=== PATIENT | female | born 1985 | race Asian ===

== ENCOUNTER 2022-08-27 05:55 | Inpatient (IN) | payer BC, SELFPAY ==
[2022-08-27] VITALS (32 sets, daily range): BP systolic 111–140; BP diastolic 62–89; PULSE 75–93; RESP 16; TEMP 36.1–37.4; O2SAT 98; BMI 28.0
--- NOTE | 2022-08-27 05:55 | LDADM ---
This patient, Althea Scott, was admitted to Labor/Delivery/Recovery 103 on 08/27/22 at 05:55. Plans for labor, pain management and were discussed with patient. Patient/family oriented to hospital policies and general routines including ID bracelet, bed and alarms, visiting hours, pain management, procedures, bathroom and other care routines, personal items, smoking policy, room service/diet and guest tray routines, security routines, and visiting hours. Patient/Family are encouraged to report perceived risks to care and to ask questions if they do not understand what they are told or what they should do. See OBIX for further documentation.
[2022-08-27 06:55] LABS: Basophils Percent Auto 0.4 % (0.2-1.2); Eosinophils Absolute Auto 0.1 K/mm3 (0-0.3); Eosinophils Percent Auto 1.1 % (0-4.4); Hematocrit 35.9 % (37.0-47.0); Hemoglobin 12.1 g/dL (12.0-15.0); Immature Granulocyte Absolute 0.15 K/mm3 (0.00-0.031); Immature Granulocyte Percent A 1.9 % (0-0.5); Lymphocytes Absolute Auto 1.78 K/mm3 (0.9-3.2); Mean Corpuscular HGB Conc 33.7 g/dl (32-36); Mean Corpuscular Hemoglobin 29.3 pg (26-34); Mean Corpuscular Volume 86.9 fl (80-100); Monocytes Absolute Auto 0.7 K/mm3 (0.1-0.6); Monocytes Percent Auto 8.4 % (2.6-8.5); Neutrophils Absolute Auto 5.4 K/mm3 (1.3-6.7); Neutrophils Percent Auto 66.2 % (45.5-73.1); Platelet Count Result 165 k/mm3 (150-375); Red Blood Count 4.13 M/mm3 (4.2-5.4); Red Cell Distribution Width 14.3 % (11.5-14.5); White Blood Count 8.1 K/mm3 (4.5-10.0)
[2022-08-27] MEDS: OXYTOCIN 30 UNITS/NS 500 ML 30 UNITS/500 ML BAG IV CONT (07:11)
[2022-08-27] MEDS: LACTATED RINGERS 1,000 ML 125 ML IV CONT (07:11)
--- NOTE | 2022-08-27 07:54 | PM.IMHP ---
H&P: HPI History of Present Illness Date/Time: 08/27/22 07:54 Chief Complaint: induction of labor Narrative: Shirin is a 37yo at 39.1 for elective IOL. She is AMA and has history of LGA babies x2. This baby was measuring LGA at 95%, but last US was 83%. GBS neg. Irregular contractions prior to admission. Review of Systems Review of Systems: All systems reviewed & are unremarkable except as noted in HPI and below PMFSH Family History Family History (Updated 08/01/22 @ 13:13 by Zo Kaur RN) Mother Hypertension Asthma Social History Social History Smoking status: Never smoker Substance use: never Spiritual care concerns: No Meds Home Medications and Allergies Home Medications Medication Instructions Recorded Confirmed Type prenat.vits,anthony,dth-zbmu-yhidc 1 tablet PO DAILY 08/01/22 08/01/22 History Allergies Allergy/AdvReac Type Severity Reaction Status Date / Time No Known Allergies Allergy Verified 08/01/22 13:10 Vital Signs Vital Signs - 24 hr 08/27/22 06:48 08/27/22 07:00 08/27/22 07:15 Temperature Pulse Rate 81 79 88 Blood Pressure 117/73 115/70 130/76 08/27/22 06:54 08/27/22 07:30 08/27/22 07:45 Temperature 97.1 F L Pulse Rate 82 89 Blood Pressure 122/74 111/69 Exam Const: General: no acute distress Resp: Effort & Inspection: normal respiratory effort Auscultation: clear to auscultation bilaterally Cardio: Rate: regular rate Rhythm: regular rhythm GI: GI Palp: Yes Soft to palpation Extrem: General: normal to inspection H&P: Results Labs Labs: Short CBC 08/27/22 Range/Units 06:44 WBC 8.1 (4.5-10.0) K/mm3 Hgb 12.1 (12.0-15.0) g/dL Hct 35.9 L (37.0-47.0) % Plt Count 165 (150-375) k/mm3 Assessment and Plan Assessment and plan (1) Encounter for induction of labor: Code(s): Z34.90 - Encounter for supervision of normal , unspecified, unspecified trimester Status: Acute Plan IOL pitocin AROM clear /2 GBS neg anticipate FHT category 1
--- NOTE | 2022-08-27 08:30 | WPDANESEPP ---
Anes - Eval Pre Procedure Procedure: Labor Pain Management Date/Time: 08/27/22 08:30 Surgeon: Aubrey Preop Diagnosis: Pain during labor Pre Op Diagnosis: IOL Patient Data Age: 37 Gender: F Height: 1.63 m Weight: 74 kg Last Vital Signs Temp 97.1 F L 08/27/22 06:54 Pulse 76 08/27/22 08:15 BP 117/72 08/27/22 08:15 Allergies Allergy/AdvReac Type Severity Reaction Status Date / Time No Known Allergies Allergy Verified 08/01/22 13:10 Home Medications Medication Instructions Recorded Confirmed Type prenat.vits,anthony,hua-hciv-cletv 1 tablet PO DAILY 08/01/22 08/01/22 History Laboratory Tests 08/27/22 08/27/22 08/27/22 06:44 06:44 06:44 WBC 8.1 K/mm3 K/mm3 (4.5-10.0) RBC 4.13 M/mm3 L M/mm3 (4.2-5.4) Hgb 12.1 g/dL g/dL (12.0-15.0) Hct 35.9 % L % (37.0-47.0) MCV 86.9 fl fl (80-100) MCH 29.3 pg pg (26-34) MCHC 33.7 g/dl g/dl (32-36) RDW 14.3 % % (11.5-14.5) Plt Count 165 k/mm3 k/mm3 (150-375) MPV 11.0 fl H fl (7.4-10.4) Immature Gran % (Auto) 1.9 % H % (0-0.5) Neut % (Auto) 66.2 % % (45.5-73.1) Lymph % (Auto) 22.0 % % (18.3-44.2) [place] % (Auto) 8.4 % % (2.6-8.5) Eos % (Auto) 1.1 % % (0-4.4) Baso % (Auto) 0.4 % % (0.2-1.2) Lymph # (Auto) 1.78 K/mm3 K/mm3 (0.9-3.2) [place] # (Auto) 0.7 K/mm3 H K/mm3 (0.1-0.6) Eos # (Auto) 0.1 K/mm3 K/mm3 (0-0.3) Baso # (Auto) 0.0 K/mm3 K/mm3 (0.0-0.1) Abs Immat Gran (auto) 0.15 K/mm3 H K/mm3 (0.00-0.031) Absolute Neuts (auto) 5.4 K/mm3 K/mm3 (1.3-6.7) Absolute Nucleated RBC 0.0 K/mm3 K/mm3 (0.0-0.012) Nucleated RBC % 0.0 % % (0.0-0.2) RPR Pending Blood Type O Positive Antibody Screen Negative Patient hx anesthesia problems: none Family hx anesthesia problems: none Results Review: All pre-operative results and documents have been reviewed as part of the pre-operative evaluation. [facility] Family History Family History (Updated 08/01/22 @ 13:13 by Zo Kaur RN) Mother Hypertension Asthma Social History Social History Smoking status: Never smoker Substance use: never Spiritual care concerns: No Exam Day of Procedure 08/27/22 08:30
[2022-08-27 10:01] LABS: Rapid Plasma Reagin Non-Reactive (NonReactive)
--- NOTE | 2022-08-27 12:28 | PM.OBPRVD ---
OB - Delivery Note Procedure Delivery date: 08/27/22 Procedure: Induction method: AROM and Per Pitocin Protocol Delivery monitor: External FHT and External Uterine Route of delivery: Laceration Description: Perineal - 1st Degree Delivery repair: vicryl Specimen: No Quantitative Blood Loss (ml): 300 Anesthesia type: None Disposition: Floor Narrative: With adequate expulsive efforts by the mother, the baby's head was delivered OA. The baby's anterior shoulder was delivered under the pubic symphysis without difficulty. The posterior shoulder and the rest of the baby delivered without difficulty. The infant was placed on the mothers chest and suctioned and stimulated. The cord was clamped and cut after 30 seconds. Mother and baby both stable. Baby Date of : 08/27/22 Time of : 12:10 Weeks of gestation at delivery: 39 Infant gender: Female Weight (pounds): 9 Weight (ounces): 13 presentation: vertex Placenta delivery description: Spontaneous Cord Vessel Description: 3 Vessels and Delayed Cord Clamping score one minute: 8 score five minutes: 9
[2022-08-27] MEDS: IBUPROFEN 600 MG TABLET PO (13:59)
[2022-08-27] MEDS: LANOLIN (LANSINOH) 7.5 GM CREAM 1 APPLIC TOPICAL (19:46)
[2022-08-27] MEDS: ACETAMINOPHEN 325 MG TABLET 650 MG PO (19:46)
[2022-08-27] MEDS: DOCUSATE SODIUM 100 MG CAPSULE PO (19:51)
[2022-08-28 01:30] VITALS: BP 111/64; PULSE 68; RESP 14; TEMP 36.7; O2SAT 98
[2022-08-28] MEDS: IBUPROFEN 600 MG TABLET PO (03:27)
[2022-08-28 04:00] VITALS: BP 107/62; PULSE 72; RESP 16; TEMP 36.8; O2SAT 98
[2022-08-28 04:52] LABS: Hematocrit 34.1 % (37.0-47.0); Hemoglobin 11.5 g/dL (12.0-15.0)
--- NOTE | 2022-08-28 07:09 | PM.OBPNVD ---
OB - PN: Subj Subjective Date/time seen: 08/28/22 07:09 Patient comments: no complaints and pain well controlled baby status: doing well and nursing well [place] feeding status: exclusively breast feeding Narrative: would like DC home. OB - PN: Obj Data Labs 08/28/22 03:37 Labs: Laboratory Results - last 24 hr 08/27/22 08/27/22 08/28/22 06:44 06:44 03:37 Hgb 11.5 L Hct 34.1 L RPR Non-reactive Blood Type O Positive Antibody Screen Negative OB - PN A/P Plan day: 1 Plan: routine care and discharge home Time Spent With Patient Time: Total time spent is greater than 50% in coordination of care (as documented) at patient's floor/unit and/or counseling patient: Time with patient: less than 15 minutes Exam Narrative: NAD abdomen soft, nontender, fundus firm below the umbilicus Extremities nontender, 1+ edema
--- NOTE | 2022-08-28 07:11 | PM.OBDSVD ---
DS: Admitting Diagnosis Discharge Date 08/28/22 Admitting Diagnosis IUP at 39w DS: Discharge Diagnosis Discharge Diagnosis (1) , delivered: Code(s): O80 - Encounter for full-term uncomplicated delivery Status: Acute OB - DS: Summary Hospital Course Hospital Course: Shirin was admitted for elective induction at 39w and proceeded to have an uncomplicated vaginal delivery and course. She was discharged home on PPD 1. OB Procedures : Ultrasound OB Procedures Intrapartum: Spontaneous Vag Delivery OB Procedures: : None Peripartum Data Infant Delivery Method: Natural Vaginal complications: none Status at Discharge Functional status at discharge: independent ambulation Time Spent with Patient Time attestation: Total time spent providing and/or coordinating discharge services: Exam Narrative: NAD abdomen soft, appropriately tender Ext non tender, 1+ edema DS: Data Data Completed and Pending Labs on day of discharge: Labs from last 24 hours 08/28/22 08/27/22 08/27/22 03:37 06:44 06:44 Hgb 11.5 L Hct 34.1 L RPR Non-reactive Blood Type O Positive Antibody Screen Negative Discharge Plan Discharge Attending physician on discharge: Mary Burgos Discharging Clinician: Mary Burgos Anticipated Discharge Date/Time: 08/28/22 12:00 Patient Disposition: Home, Self-Care Activity: pelvic rest Diet: regular Patient Instructions: Antibiotic Form Stand Alone Forms: General Discharge Information Follow-up/Referrals: Mary Burgos MD [Physician] - 4 Weeks Discharge Medications: Continued #2 Tablet 1 tablet PO DAILY Date of admission: 08/27/22 05:55 Primary Care Provider: PHYSICIAN,HOSPITAL ADMISSIONS CLERK Admitting Provider: Mary Burgos Attending physician on admission: Mary Burgos Condition: Stable
[2022-08-28 07:50] VITALS: BP 102/60; PULSE 74; RESP 18; TEMP 37.3; O2SAT 99
[2022-08-28] MEDS: ACETAMINOPHEN 325 MG TABLET 650 MG PO (09:39)
[2022-08-28] MEDS: MULTIVIT/MIN/PREN/FOL AC/IRON TABLET 1 TAB PO (09:40)
[2022-08-28] MEDS: DOCUSATE SODIUM 100 MG CAPSULE PO (09:41)
[2022-08-28 12:09] VITALS: BP 113/57; PULSE 67; RESP 16; TEMP 37.2; O2SAT 98
--- NOTE | 2022-08-28 14:08 | PC.NURSE ---
[id number] Introductions were made Mother was open to conversation with her experience, plan to feed her so far and her ability to independently latch optimally without discomfort. Reminded parents to use good handwashing technique to prevent infection. Mother is feeding appropriately for growth of infant and understands stimulating infant to eat if needed. Mother was receptive to practicing the football position on the left breast encouraging to latch with big, open, wide gape. has had appropriate feedings in the last 24 hours meets the outcomes for weight, output and jaundice at this time. Reminded mother how to watch and listen for infant actively swallowing at the breast. Mother states she is confident to continue effectively breastfeed her infant at home, when to call for assistance and denies any additional assistance or education at this time. Reinforced understanding of milk production, transition of milk, signs of adequate intake, prevention/relief of engorgement, responsive after visualizing feeding cues, the different methods of stimulating infant to breastfeed 2-3 hours after the start of the last feeding, community resources, medication information reviewed per [employer] and when to call a provider using the resource of the mom and baby guide. Mother voiced understanding of the education shared. Reported to the primary RN.
[2022-08-29 10:51] VITALS: PULSE 74; RESP 20; TEMP 36.9; O2SAT 99
== END 2022-08-28 15:32 | disposition home or self-care (01) | DRG 807 ==
LOC: ANHLDR 06:06 → ANHOB2 15:15
PROVIDERS: Admitting Provider Obstetrics & Gynecology; Visit Provider Obstetrics & Gynecology
DX: O70.0 First degree perineal laceration during delivery (principal); Z37.0 Single live birth; Z3A.39 39 weeks gestation of pregnancy
CPT/HCPCS: 36415; 85014; 85018; 85025; 86592; 86850; 86900; 86901; A9270; J2590; J7120